=== PATIENT | male | born 1930 | race Caucasian/White ===

== ENCOUNTER 2016-04-26 12:09 | Inpatient (IN) | payer MEDICARE ==
[~2016-04-26 12:09] MED LIST: ADULT ASPIRIN81 MG PO; AMIODARONE HCL200 M1 PO; AMIODARONE HCL200 MG PO; ANTACID650 MG PO; ANTI-GAS/8080 MG; APPLE CIDER VI300 MG; ARTIFICIAL TEAR1512 EACH EYE; ASPIR 8181 M1 PO; CALCIUM + D T1 UDTAB; CALCIUM MAGNES1 EAC2 PO; CATAPRES0.2 M1 PO; CHROMIUM PO; CINNAMON500 M1 PO; CINNAMON500 MG; COD LIVER OIL1 EAC3 PO; COENZYME Q-10100 MG; COENZYME Q10200 MG PO; COZAAR100 M1 PO; FISH OIL 11000 MG/CA PO; FLAXSEED MEAL; FLOMAX0.4 M1 PO; FLOMAX0.4 MG PO; FLORA SINUS PO; FLUOROURACIL30 GM TOP; GABAPENTIN100 M1 PO; GARLIC OIL1000 M1 PO; GARLIC OIL500 MG; GLUCOPHAGE500 M3 PO; GLUCOPHAGE500 MG PO; GLUCOSAMINE & C1 CAP; GLUCOSAMINE CH1 EA13 PO; HALFPRIN162 MG; HAWTHORNE BERRY PO; LASIX40 M1 PO; MULTIVITAMIN W/1 T; MULTIVITAMINS1 EAC7 PO; NAPROXEN375 M1 PO; NIACIN FLUSH FR1 CAP; NIZORAL120 M1 TOP; OMEGA-3 FISH OI1 CAP; OYSTER SHELL C500 MG; POLICOSANOL PO; POTASSIUM-9999 MG; PRAVACHOL40 MG PO; PRAVASTATIN SOD40 M1 PO; PROSCAR5 M1 PO; SOY LECITHIN; SPIRIVA18 MC1 INH; SPIRIVA18 MCG IH; VITAMIN B-12250 MC2 PO; VITAMIN C250 MG; WELCHOL625 MG; ZESTORETIC 10/11 TAB; [UNRECOGNIZED DRUG - OTHER]; [UNRECOGNIZED DRUG - OTHER]; [UNRECOGNIZED DRUG - OTHER]; [UNRECOGNIZED DRUG - OTHER]; [UNRECOGNIZED DRUG - OTHER]; [UNRECOGNIZED DRUG - OTHER] PO; [UNRECOGNIZED DRUG - OTHER] PO; [UNRECOGNIZED DRUG - REMARK]
[2016-04-26 13:06] LABS: URINE LEUKOCYTE ESTERASE NEGATIVE (NEG); URINE PROTEIN MODERATE (NEG)
[2016-04-26 13:08] LABS: BASO % 0.1 % (0-2); EOS % 0.1 % (0-7); HCT-HEMATOCRIT 40.4 % (36.0-53.5); HGB-HEMOGLOBIN 13.9 gm/dl (13.5-17.0); IMMATURE GRANULOCYTES ABSOLUTE 0.07 tho/cmm (0-0.03); IMMATURE GRANULOCYTES PERCENT 0.5 % (0-0.3); LYMPH % 5.8 % (20-45); LYMPH ABSOLUTE COUNT 0.8 tho/cmm (0.8-4.5); MCH (MEAN CORPUSCULAR HGB) 33.2 pg (28.0-32.0); MCHC MEAN CORPUSCULAR HGB CONC 34.4 % (32.0-36.0); MCV (MEAN CELL VOLUME) 96.4 fl (82.0-96.0); MEAN PLATELET VOLUME 9.2 cmc (9.4-12.4); MONO % 6.8 % (0-12); MONOCYTE ABSOLUTE COUNT 0.9 tho/cmm (0.0-1.2); NEUTROPHIL ABSOLUTE COUNT 12.1 tho/cmm (1.6-8.0); NEUTROPHIL-AUTOMATED 12.1 tho/cmm (1.6-8.0); NEUTROPHILS % 86.7 % (40-80); PLATELET COUNT 299 tho/cmm (150-450); RED BLOOD COUNT 4.19 mil/cmm (4.40-5.70); RED CELL DISTRIBUTION WIDTH 13.7 % (12.4-16.4); WHITE BLOOD COUNT 13.9 tho/cmm (4.0-10.0)
[2016-04-26 13:08] LABS: URINE APPEARANCE CLEAR; URINE BILIRUBIN NEGATIVE (NEG); URINE BLOOD SMALL (NEG); URINE COLOR YELLOW; URINE GLUCOSE (UA) MODERATE (NEG); URINE KETONE NEGATIVE (NEG); URINE NITRITE NEGATIVE (NEG)
[2016-04-26 13:13] LABS: ANION GAP 11 mmol/L (0-20); BLOOD UREA NITROGEN 12 mg/dl (6-24); CALCIUM 8.6 mg/dl (8.5-10.5); CARBON DIOXIDE-VENOUS 30 mmol/L (22-32); CHLORIDE 95 mmol/l (96-110); CREATININE 0.96 mg/dl (0.60-1.30); GLUCOSE 223 mg/dL (70-110); SODIUM 132 mmol/L (135-145); eGFR VALUE FOR BLACK 83 mL/Min
[2016-04-26 13:15] LABS: POTASSIUM 3.9 mmol/L (3.7-5.1)
[2016-04-26 13:17] LABS: URINE EPITHELIAL CELLS 0-2 /[HPF] (0-10); URINE RBC RARE /[HPF] (0-5); URINE WBC RARE /[HPF] (0-5)
[2016-04-27 04:25] LABS: BASO % 0.2 % (0-2); EOS % 0.8 % (0-7); EOSINOPHIL ABSOLUTE COUNT 0.1 tho/cmm (0.0-0.7); HCT-HEMATOCRIT 40.2 % (36.0-53.5); HGB-HEMOGLOBIN 13.7 gm/dl (13.5-17.0); IMMATURE GRANULOCYTES ABSOLUTE 0.05 tho/cmm (0-0.03); IMMATURE GRANULOCYTES PERCENT 0.3 % (0-0.3); LYMPH % 3.2 % (20-45); LYMPH ABSOLUTE COUNT 0.5 tho/cmm (0.8-4.5); MCH (MEAN CORPUSCULAR HGB) 32.9 pg (28.0-32.0); MCHC MEAN CORPUSCULAR HGB CONC 34.1 % (32.0-36.0); MCV (MEAN CELL VOLUME) 96.4 fl (82.0-96.0); MEAN PLATELET VOLUME 9.5 cmc (9.4-12.4); MONO % 14.1 % (0-12); MONOCYTE ABSOLUTE COUNT 2.1 tho/cmm (0.0-1.2); NEUTROPHIL ABSOLUTE COUNT 12.3 tho/cmm (1.6-8.0); NEUTROPHIL-AUTOMATED 12.3 tho/cmm (1.6-8.0); NEUTROPHILS % 81.4 % (40-80); PLATELET COUNT 296 tho/cmm (150-450); RED BLOOD COUNT 4.17 mil/cmm (4.40-5.70); RED CELL DISTRIBUTION WIDTH 13.8 % (12.4-16.4); WHITE BLOOD COUNT 15.1 tho/cmm (4.0-10.0)
[2016-04-27 04:59] LABS: PROTHROMBIN TIME 11.8 SECONDS (9.0-13.6)
[2016-04-27 05:25] LABS: ANION GAP 12 mmol/L (0-20); BLOOD UREA NITROGEN 14 mg/dl (6-24); CALCIUM 8.3 mg/dl (8.5-10.5); CARBON DIOXIDE-VENOUS 26 mmol/L (22-32); CHLORIDE 99 mmol/l (96-110); CREATININE 0.93 mg/dl (0.60-1.30); GLUCOSE 159 mg/dL (70-110); POTASSIUM 3.6 mmol/L (3.7-5.1); SODIUM 133 mmol/L (135-145); eGFR VALUE FOR BLACK 86 mL/Min
[2016-04-28 06:29] LABS: ANION GAP 14 mmol/L (0-20); BLOOD UREA NITROGEN 16 mg/dl (6-24); CALCIUM 8.6 mg/dl (8.5-10.5); CARBON DIOXIDE-VENOUS 28 mmol/L (22-32); CHLORIDE 96 mmol/l (96-110); CREATININE 0.97 mg/dl (0.60-1.30); GLUCOSE 163 mg/dL (70-110); POTASSIUM 3.8 mmol/L (3.7-5.1); SODIUM 134 mmol/L (135-145); eGFR VALUE FOR BLACK 82 mL/Min
[2016-04-30] MEDS ORDERED: ULTRAM50 M1 PO (10:29)
[2016-04-30] MEDS ORDERED: TYLENOL325 M2 PO (10:32)
[2016-08-05] MEDS ORDERED: HYDROCHLOROTH12.5 M2 PO (12:12)
[2016-08-08] MEDS ORDERED: GLUCOTROL5 M1 PO (10:23)
[2016-10-27] MEDS ORDERED: LEVAQUIN500 M1 PO (12:01)
[2016-10-27] MEDS ORDERED: COMBIVENT RESPIM4 G1 INH (12:01)
[2016-10-27] MEDS ORDERED: COD LIVER OIL1 EAC3 PO (12:02)
[2016-11-04] MEDS ORDERED: NORVASC5 M2 PO (11:34)
[2016-11-04] MEDS ORDERED: AMIODARONE HCL100 M1 PO (11:34)
[2016-11-04] MEDS ORDERED: LASIX40 M1 PO (11:35)
== END 2016-04-30 11:40 | DRG 552 ==
LOC: EDMED 12:09 → EMR2 16:26 → 5EB 19:15
PROVIDERS: Emergency Medicine; Family Medicine; ADMIT Family Medicine
DX: S12.9XXA Fracture of neck, unspecified, initial encounter (principal); E11.65 Type 2 diabetes mellitus with hyperglycemia; G62.9 Polyneuropathy, unspecified; I48.0 Paroxysmal atrial fibrillation; J44.9 Chronic obstructive pulmonary disease, unspecified; E87.1 Hypo-osmolality and hyponatremia; H34.9 Unspecified retinal vascular occlusion; I10 Essential (primary) hypertension; D72.829 Elevated white blood cell count, unspecified; I25.10 Atherosclerotic heart disease of native coronary artery without angina pectoris; I73.9 Peripheral vascular disease, unspecified; M25.511 Pain in right shoulder; N40.0 Benign prostatic hyperplasia without lower urinary tract symptoms; R29.6 Repeated falls; Z95.1 Presence of aortocoronary bypass graft; W18.39XA Other fall on same level, initial encounter; Y92.018 Other place in single-family (private) house as the place of occurrence of the external cause
CPT/HCPCS: J1815; J2270; J7030